=== PATIENT | male | born 1990 | race African-American/Black ===

== ENCOUNTER 2017-08-29 19:02 | Emergency (ER) | payer BC, OTHER ==
[~2017-08-29] VITALS: Ht 180.3 cm; Wt 76.8 kg
[2017-08-29 19:05] VITALS: Ht 180.3 cm; Wt 76.8 kg
[2017-08-29] MEDS ORDERED: SOD CHLORIDE 0.9% 1,000 ML IV STA (20:47)
[2017-08-29] MEDS ORDERED: LORAZEPAM 2 MG INJ IV ONE (21:30)
--- NOTE | 2017-08-29 21:48 | RADRPT ---
PROCEDURE: Portable chest x-ray. CLINICAL INDICATION: 27 years of age, male. Chest pain TECHNIQUE: Portable AP view of the chest. COMPARISON: None available. FINDINGS: Medical devices: None. Cardiomediastinal contours are normal. Lungs are clear. Negative for pleural effusion or pneumothorax. No acute bony abnormality. Additional comment: None. IMPRESSION: Negative for evidence of an acute chest process. RPTAT: HCTS Physician Amie Date Time Electronically viewed and signed by Kaz Hoover Physician on 08/29/2017 21:48 CS/
[2017-08-29 21:58] LABS: BASOPHIL # 0.1 10^3/ul (0.0-0.1); BASOPHILS % 0.7 % (0.0-2.0); EOSINOPHILS # 0.4 10^3/ul (0.0-0.5); EOSINOPHILS % 3.4 % (0.0-7.0); HEMATOCRIT 43.5 % (42.0-52.0); HEMOGLOBIN 14.4 g/dl (14.0-18.0); LYMPHOCYTES # 1.7 10^3/ul (0.8-2.9); LYMPHOCYTES % 14.7 % (15.0-51.0); MEAN CORPUSCULAR HEMOGLOBIN 26.6 pg (29.0-33.0); MEAN CORPUSCULAR HGB CONC 33.1 g/dl (32.0-37.0); MEAN CORPUSCULAR VOLUME 80.3 fl (82.0-101.0); MONOCYTES % 8.2 % (0.0-11.0); NEUTROPHIL # 8.4 10^3/ul (1.6-7.5); NEUTROPHILS % 72.4 % (39.0-77.0); PLATELET COUNT 254 10^3/UL (140-415); RED BLOOD COUNT 5.42 10^6/ul (4.70-6.10); RED CELL DISTRIBUTION WIDTH 13.6 % (11.5-14.5); WHITE BLOOD COUNT 11.6 10^3/ul (4.8-10.8)
[2017-08-29 22:09] LABS: ADD UMIC NO; UR ASCORBIC ACID NEGATIVE (NEGATIVE); UR BILIRUBIN (Dip) NEGATIVE (NEGATIVE); UR BLOOD (Dip) NEGATIVE (NEGATIVE); UR CLARITY CLEAR (CLEAR); UR COLOR STRAW (YELLOW); UR GLUCOSE (Dip) NEGATIVE (NEGATIVE); UR KETONES (Dip) TRACE mg/dL (NEGATIVE); UR LEUKOCYTE ESTERASE (Dip) NEGATIVE Leu/ul (NEGATIVE); UR NITRITE (Dip) NEGATIVE (NEGATIVE); UR SPECIFIC GRAVITY (Dip) 1.003 (1.003-1.030); UR TOTAL PROTEIN (Dip) NEGATIVE (NEGATIVE); UR UROBILINOGEN (Dip) NEGATIVE (NEGATIVE)
[2017-08-29 22:22] LABS: ALANINE AMINOTRANSFERASE 40 IU/L (13-69); ALBUMIN 4.8 g/dl (3.3-4.9); ALBUMIN/GLOBULIN RATIO 1.23; ALKALINE PHOSPHATASE 69 IU/L (42-121); ANION GAP 22 (8-16); ASPARTATE AMINO TRANSFERASE 30 IU/L (15-46); BILIRUBIN,INDIRECT 0.6 mg/dl (0-1.1); BILIRUBIN,TOTAL 0.6 mg/dl (0.2-1.3); BLOOD UREA NITROGEN 12 mg/dl (7-20); CALCIUM 10.4 mg/dl (8.4-10.2); CARBON DIOXIDE 22 mmol/L (21-31); CHLORIDE 98 mmol/L (97-110); CREATINE KINASE 96 IU/L (23-200); CREATININE 0.98 mg/dl (0.61-1.24); GLUCOSE 81 mg/dl (70-220); SODIUM 138 mmol/L (135-144); TOTAL PROTEIN 8.7 g/dl (6.1-8.1)
[2017-08-29 22:23] LABS: CANNABINOIDS Negative (NEGATIVE)
[2017-08-29 22:27] LABS: BARBITURATES Negative (NEGATIVE); BENZODIAZEPINES Negative (NEGATIVE); COCAINE Negative (NEGATIVE); OPIATES Negative (NEGATIVE)
[2017-08-29 22:33] LABS: B-TYPE NATRIURETIC PEPTIDE 12 PG/ML (0-125)
[2017-08-29 22:35] LABS: CK-MB 0.46 ng/ml (0.0-2.4); TROPONIN-I < 0.012 ng/ml (0.00-0.12)
[2017-08-29 22:41] LABS: INR 1.01; PARTIAL THROMBOPLASTIN TIME 28.3 Sec (25.0-35.0); PROTIME 13.4 Sec (11.9-14.9)
[2017-08-29 22:44] LABS: ETHANOL < 10.0 mg/dl
--- NOTE | 2017-08-29 22:53 | ERD ---
ER Documentation Chief Complaint Chief Complaint c/o PS x 2 days. Smoked meth. HPI This is a 27-year-old male that presents to the emergency department complaining of anxiousness and palpitations for the past 2 days. He indicates that he smoked a significant amount of crystal meth. He denies any other illicit drug use. He denies any chest pain or pressure that radiates to the neck arm back or jaw. He has no shortness of breath at rest or exertion. He denies any abdominal pain. He has no hemoptysis hematemesis or melanotic stools. He denies any suicidal homicidal thoughts or ideations. He denies any auditory tactile or visual hallucinations. ROS All systems reviewed and are negative except as per history of present illness. PMhx/Soc Medical and Surgical Hx: pt denies Surgical Hx Hx Respiratory Disorders: Yes (hx of asthma) Hx Alcohol Use: Yes Hx Substance Use: Yes (meth) Hx Tobacco Use: Yes Smoking Status: Current every day smoker Physical Exam Vitals Vital Signs Date Time Temp Pulse Resp B/P Pulse Ox O2 Delivery O2 Flow Rate FiO2 08/29/17 21:14 110 16 137/86 100 Room Air 08/29/17 19:05 98.7 142 20 122/71 97 Physical Exam Constitutional:Well-developed. Well-nourished. Patient appeared very anxious and speaking very rapidly HEENT:Normocephalic. Atraumatic.Pupils were equal round reactive to light. Moist mucous membranes.No tonsillar exudates. Neck: No nuchal rigidity. No lymphadenopathy. No posterior cervical spine tenderness or step-offs. Respiratory: Not using accessory muscles of respiration.Lungs were clear to auscultation bilaterally. No rhonchi. No rales. No wheezing. Cardiovascular: Tachycardic with regular rhythm.No murmurs. No rubs were appreciated.S1, S2 normal. Distal pulses are palpable 2+ bilaterally. GI: Abdomen was soft. Nontender. Non Distended. No pulsatile abdominal masses or bruits. No rebound. No guarding. Bowel sounds were present and normal. Muscle skeletal: Full range of motion of both the upper and lower extremities bilaterally.Normal muscle tone.No assymetrical calf tenderness or swelling. Skin: No petechia, no purpura. No lesions on the palms or the soles of the feet. No maculopapular rash. NEURO: Patient was alert, awake, orientated x3.No facial droop. Gait observed and normal with no ataxia.Speech had regular rate and rhythm. No focal neurological deficits. Patient denied any suicidal homicidal thoughts or ideations. Result Diagram: 08/29/17210908/29/172109 Results 24 hrs Laboratory Tests Test 08/29/17 21:10 08/29/17 21:20 08/29/17 22:15 White Blood Count 11.610^3/ul Red Blood Count 5.4210^6/ul Hemoglobin 14.4g/dl Hematocrit 43.5% Mean Corpuscular Volume 80.3fl Mean Corpuscular Hemoglobin 26.6pg Mean Corpuscular Hemoglobin Concent 33.1g/dl Red Cell Distribution Width 13.6% Platelet Count 66403^3/UL Mean Platelet Volume 12.0fl Neutrophils % 72.4% Lymphocytes % 14.7% Monocytes % 8.2% Eosinophils % 3.4% Basophils % 0.7% Nucleated Red Blood Cells % 0.0/100WBC Neutrophils # 8.410^3/ul Lymphocytes # 1.710^3/ul Monocytes # 1.010^3/ul Eosinophils # 0.410^3/ul Basophils # 0.110^3/ul Nucleated Red Blood Cells # 0.010^3/ul Sodium Level 138mmol/L Potassium Level 4.0mmol/L Chloride Level 98mmol/L Carbon Dioxide Level 22mmol/L Anion Gap 22 Blood Urea Nitrogen 12mg/dl Creatinine 0.98mg/dl Glucose Level 81mg/dl Calcium Level 10.4mg/dl Total Bilirubin 0.6mg/dl Direct Bilirubin 0.00mg/dl Indirect Bilirubin 0.6mg/dl Aspartate Amino Transf (AST/SGOT) 30IU/L Alanine Aminotransferase (ALT/SGPT) 40IU/L Alkaline Phosphatase 69IU/L Creatine Kinase 96IU/L Creatine Kinase Index 0.5 Creatinine Kinase MB (Mass) 0.46ng/ml Troponin I < 0.012ng/ml B-Type Natriuretic Peptide 12PG/ML Total Protein 8.7g/dl Albumin 4.8g/dl Globulin 3.90g/dl Albumin/Globulin Ratio 1.23 Ethyl Alcohol Level < 10.0mg/dl Urine Color STRAW Urine Clarity CLEAR Urine pH 6.0 Urine Specific [place] 1.003 Urine Ketones TRACEmg/dL Urine Nitrite NEGATIVEmg/dL Urine Bilirubin NEGATIVEmg/dL Urine Urobilinogen NEGATIVEmg/dL Urine Leukocyte Esterase NEGATIVELeu/ul Urine Hemoglobin NEGATIVEmg/dL Urine Glucose NEGATIVEmg/dL Urine Total Protein NEGATIVEmg/dl Urine Opiates Screen Negative Urine Barbiturates Negative Urine Amphetamines Screen Positive Urine Benzodiazepines Screen Negative Urine Cocaine Screen Negative Urine Cannabinoids Negative Prothrombin Time 13.4Sec Prothrombin Time Ratio 1.0 INR International Normalized Ratio 1.01 Activated Partial Thromboplast Time 28.3Sec Current Medications Medications (Trade) Dose Ordered Sig/Ron Route PRN Reason Start Time Stop Time Status Last Admin Dose Admin Sodium Chloride (NS) 1,000 ml @ 1,000 mls/hr Q1H STAT IV 08/29/17 20:47 08/29/17 21:46 DC 08/29/17 21:14 Lorazepam (Ativan) 1 mg ONCE ONCE IV 08/29/17 21:30 08/29/17 21:31 DC 08/29/17 21:17 Procedures/MDM This is a 27-year-old male who presented to the emergency department with palpitations and anxiousness. He was not suicidal homicidal. I did feel his symptoms are result of the use of his crystal meth. He received IV fluids and 1 mg of Ativan intravenously. He had no electrolyte abnormalities. His symptoms are completely resolved and he felt comfortable being discharged home. 12 Lead EKG tracing ordered and reviewed by myself showed: Sinus tachycardia 129 bpm and no arrhythmia. SC interval normal. QRS duration normal. No ST segment elevation No ST segment depression. No changes consistent with acute ischemia. The patient was discharged home in fair condition. They were instructed to return to the emergency department at any time if there was any worsening of their condition. The patient stated they would follow up with their PCP in the next 24-48 hours to initiate a suitable medication regimen under the care of their PCP as well as to allow their PCP to monitor any drug reactions. The patient was discharged home with prescriptions after they gave informed consent to the new medication. They were also fully informed by myself on the adverse effects and adverse drug interactions in order to provide adequate safeguards to prevent possible adverse reactions to medications. Departure Diagnosis: Primary Impression: Palpitations Additional Impression: Anxiety attack Condition: LEEANN Dash Aug 29, 2017 22:53
[2017-08-30 04:57] VITALS: BP 147/80; PULSE 93; RESP 16
== END 2017-08-30 04:58 | disposition home or self-care (01) ==
LOC: E/R 19:02
DX: F41.9 Anxiety disorder, unspecified (principal); R00.2 Palpitations; R06.02 Shortness of breath
CPT/HCPCS: 36415; 71010; 80053; 80306; 80307; 81003; 82550; 82553; 83880; 84484; 85025; 85610; 85730; 93005; 96374; 99285; J2060; J7030